=== PATIENT | male | born 1945 | race Caucasian/White ===

== ENCOUNTER 2016-05-21 18:35 | Emergency (ER) | payer MEDICARE ==
[2016-05-21] MEDS ORDERED: LIDOCAINE 2% UROJECT 10 ML ONE ×2 (20:28→20:42)
[2016-05-21] MEDS ORDERED: SODIUM CHLORIDE 0.9% 1,000 ML ONE (21:21)
[2016-05-21 21:40] LABS: ABSOLUTE NEUTROPHIL COUNT 10.9 K/mm3 (1.8-7.7); BASO # 0.1 K/mm3 (0.0-0.2); BASO % 0.6 % (0.2-1.0); EOS # 0.2 (0.0-0.5); EOS % 1.4 % (0.9-2.9); HEMATOCRIT 48.4 % (32.0-52.0); HEMOGLOBIN 15.7 gm/l (14.0-18.0); IMM NEUT # 0.1 K/mm3 (0-0.2); IMM NEUT% 0.6 % (0-1); LYMPH # 1.3 (1.0-4.8); LYMPH % 9.3 % (15-45); MEAN CELL VOLUME 87.8 fl (80.0-94.0); MEAN CORPUSCULAR HEMOGLOBIN 28.5 pg (27.0-31.0); MEAN CORPUSCULAR HGB CONC 32.4 g/dl (33.0-37.0); MEAN PLATELET VOLUME 9.7 fl (7.4-10.4); MONO # 1.5 (0.0-0.8); MONO % 10.9 % (4-12); NEUT % 77.2 % (43-75); PLATELET COUNT 266 K/mm3 (130-400); RED CELL DISTRIBUTION WIDTH 13.2 % (11.5-14.5)
[2016-05-21 21:49] LABS: ALBUMIN 3.4 gm/dL (3.5-5.7); CALCIUM 9.3 mg/dL (8.6-10.3)
[2016-05-21 22:47] LABS: SPECIFIC GRAVITY 1.015 (1.001-1.030); URINE BILIRUBIN NEGATIVE (NEGATIVE); URINE BLOOD 4+ (NEGATIVE); URINE GLUCOSE (UA) NEGATIVE (NEGATIVE); URINE LEUKOCYTE ESTERASE TRACE (NEGATIVE); URINE NITRITE NEGATIVE (NEGATIVE); URINE PROTEIN TRACE (NEGATIVE); URINE UROBILINOGEN NORMAL (0-1 mg/dl)
[2016-05-21 23:02] LABS: URINE APPEARANCE CLOUDY; URINE COLOR DARK YELLOW
[2016-05-21 23:06] LABS: URINE BACTERIA RARE; URINE EPITHELIAL CELLS 0-3 /hpf; URINE RBC >100 /hpf
[2016-05-21] MEDS ORDERED: CEPHALEXIN 500 MG CAPSULE ONE (23:20)
== END 2016-05-21 23:38 | disposition home or self-care (01) ==
LOC: ED 18:35
DX: R31.9 Hematuria, unspecified (principal); I10 Essential (primary) hypertension; Z87.891 Personal history of nicotine dependence
CPT/HCPCS: 85025; 87086; 80053; 81001; 99283 ×2; 96360; A9270 ×3; J7030